=== PATIENT | female | born 2000 | race Caucasian/White ===

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

== ENCOUNTER 2020-02-25 08:17 | Emergency (ER) | payer OTHER ==
[~2020-02-25] VITALS: Ht 162.6 cm; Wt 70.3 kg
[2020-02-25 09:34] VITALS: BP 106/52
== END 2020-02-25 09:34 | disposition home or self-care (01) ==
LOC: ED 08:17
DX: R07.89 Other chest pain (principal); K21.9 Gastro-esophageal reflux disease without esophagitis; E03.9 Hypothyroidism, unspecified; Z90.89 Acquired absence of other organs
CPT/HCPCS: Q0092

== ENCOUNTER 2020-08-08 04:01 | Emergency (ER) | payer OTHER ==
[~2020-08-08] VITALS: Ht 165.1 cm; Wt 68.9 kg
[2020-08-08 04:07] VITALS: Ht 165.1 cm; Wt 68.9 kg
[2020-08-08] MEDS ORDERED: PYRIDIUM200 M1 PO (04:46)
[2020-08-08] MEDS ORDERED: KEF500 PO (04:46)
[2020-08-08 04:59] VITALS: BP 130/78
[2020-08-08 05:27] LABS: UA SPECIFIC GRAVITY 1.025 (1.005-1.035); microscopic required? YES; urine erythrocyte 1+ (NEGATIVE)
== END 2020-08-08 04:59 | disposition home or self-care (01) ==
LOC: ED 04:01
PROVIDERS: Emergency Medicine
DX: N39.0 Urinary tract infection, site not specified (principal); E03.9 Hypothyroidism, unspecified; Z90.89 Acquired absence of other organs